=== PATIENT | male | born 1970 | race Caucasian/White ===

== ENCOUNTER 2023-06-22 13:45 | Outpatient (AMB) | payer OTHER, SELFPAY ==
--- NOTE | 2023-06-22 13:45 | AM.OFFWIN_ITS ---
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 While in [place] 2 days ago, he started having sudden onset pain and in the right lower back. Patient proceeded to the emergency room and was diagnosed with renal calculi. A CT scan of the belly was done. Patient was hydrated and sent home. He continues to be on the road and would like some pain medications should symptoms recur. Able to urinate with no difficulty. PFSH Social History Patient Tobacco Use Status: Never used Tobacco Physical Exam Vital Signs: Last Vital Signs Temp 97.7 F 06/22/23 13:48 Pulse 78 06/22/23 13:48 BP 118/70 06/22/23 13:48 Pulse Ox 96 06/22/23 13:48 Oxygen Delivery Method Room Air 06/22/23 13:48 BMI result Body Mass Index 35.3 Const General: cooperative and healthy appearing Nutritional Appearance: well nourished Orientation/consciousness: patient oriented x3 Limitations: no limitations HEENT Head: Yes normal to inspection Eyes General: appearance normal, both eyes and all related structures Neck Neck: Yes normal visual inspection Chest Chest palpation & inspection: normal palpation of entire chest wall Resp Effort & Inspection: normal respiratory effort Neuro General: patient oriented x3 Assessment & Plan Assessment & Plan (1) Low back pain: Code(s): M54.50 - Low back pain, unspecified Plan: Increase fluid intake. Nonsteroidals prescribed. If symptoms do not improve to follow-up here. Patient was offered a primary care and a urology appointment. He reported that he would consider it. Coding Level of Care Code New Pt Level 3 (96002) Diagnoses Low back pain M54.50
[2023-06-22 13:48] VITALS: BP 118/70; PULSE 78; TEMP 36.5; O2SAT 96; BMI 35.3
== END 2023-06-22 14:21 | disposition home or self-care (01) ==
PROVIDERS: Visit Provider Internal Medicine
DX: M54.50 Low back pain, unspecified (principal)
CPT/HCPCS: 99203